=== PATIENT | female | born 1990 | race Caucasian/White ===

== ENCOUNTER 2017-10-05 10:12 | Emergency (ER) | payer OTHER | END 2017-10-05 10:37 | disposition home or self-care (01) | LOC: E/R 10:12 | DX: L73.2 Hidradenitis suppurativa (principal) | CPT/HCPCS: 99283; Z7502 ==

== ENCOUNTER 2017-11-25 10:15 | Emergency (ER) | payer OTHER | END 2017-11-25 11:29 | disposition home or self-care (01) | LOC: FTE 10:15 | DX: L73.2 Hidradenitis suppurativa (principal); R40.2412 Glasgow coma scale score 13-15, at arrival to emergency department; F17.210 Nicotine dependence, cigarettes, uncomplicated; Z76.0 Encounter for issue of repeat prescription | CPT/HCPCS: 99283; Z7502 ==

== ENCOUNTER 2018-05-02 09:43 | Emergency (ER) | payer OTHER ==
[2018-05-02] MEDS: ACETAMINOPHEN 325 MG TAB PO (11:40)
== END 2018-05-02 11:43 | disposition home or self-care (01) ==
LOC: FTE 09:43
DX: S09.90XS Unspecified injury of head, sequela (principal); F17.210 Nicotine dependence, cigarettes, uncomplicated; R51 Headache; Y09 Assault by unspecified means
CPT/HCPCS: 70450; 99284-25

== ENCOUNTER 2018-05-27 19:02 | Emergency (ER) | payer OTHER | END 2018-05-27 20:28 | disposition home or self-care (01) | LOC: FTE 19:02 | DX: L01.00 Impetigo, unspecified (principal); F17.210 Nicotine dependence, cigarettes, uncomplicated | CPT/HCPCS: 99283; Z7502 ==

== ENCOUNTER 2018-06-19 13:15 | Emergency (ER) | payer SELFPAY, OTHER | END 2018-06-19 18:00 | disposition left against medical advice (07) | LOC: FTE 13:15 | DX: Z53.21 Procedure and treatment not carried out due to patient leaving prior to being seen by health care provider (principal) ==

== ENCOUNTER 2018-08-17 16:35 | Emergency (ER) | payer OTHER | END 2018-08-17 17:47 | disposition home or self-care (01) | LOC: FTE 16:35 | DX: L73.2 Hidradenitis suppurativa (principal); Z87.891 Personal history of nicotine dependence | CPT/HCPCS: 81025; 99283 ==

== ENCOUNTER 2018-11-18 17:07 | Emergency (ER) | payer OTHER ==
[2018-11-18] MEDS: HYDROCODONE/APAP (5/325) TAB PO (17:23)
== END 2018-11-18 17:42 | disposition home or self-care (01) ==
LOC: FTE 17:42
DX: K08.89 Other specified disorders of teeth and supporting structures (principal); F17.210 Nicotine dependence, cigarettes, uncomplicated
CPT/HCPCS: 99283; Z7502

== ENCOUNTER 2019-01-17 09:03 | Emergency (ER) | payer OTHER ==
[2019-01-17] MEDS: IBUPROFEN 800 MG TAB PO (09:48)
== END 2019-01-17 09:49 | disposition home or self-care (01) ==
LOC: E/R 09:03
DX: R07.89 Other chest pain (principal); R40.2142 Coma scale, eyes open, spontaneous, at arrival to emergency department; R40.2252 Coma scale, best verbal response, oriented, at arrival to emergency department; R40.2362 Coma scale, best motor response, obeys commands, at arrival to emergency department; F17.210 Nicotine dependence, cigarettes, uncomplicated
CPT/HCPCS: 81025; 99282